=== PATIENT | female | born 1960 ===

== ENCOUNTER 2023-09-22 05:52 | Day surgery (SDC) | payer OTHER ==
[2023-09-14 15:16] LABS: PH,URINE 5.5 (5.0-8.0); URINE APPEARANCE Clear; URINE BILIRRUBIN Negative (NEGATIVE); URINE BLOOD Moderate; URINE COLOR Yellow; URINE GLUCOSE Negative (NEGATIVE); URINE LEUKOCYTE Negative; URINE NITRATE Negative; URINE UROBILINOGEN 0.2 E.U./dl
[2023-09-14 15:16] LABS: HEMATOCRIT 37.9 % (36.0-45.00); MEAN CELL VOLUME 85.5 fL (80.00-100.00); MEAN CORPUSCULAR HEMOGLOBIN 29.4 pg (27.00-32.0); MEAN CORPUSCULAR HGB CONC 34.3 g/dl (32.0-36.0); PLATELET COUNT 264 K/uL (150-450); RED BLOOD COUNT 4.43 M/uL (4.00-6.00); RED CELL DISTRIBUTION WIDTH 14.1 % (11.5-14.5)
[2023-09-14 15:20] LABS: URINE BACTERIA 147.3 uL (0.0-1933); URINE EPITHELIAL CELLS 11.5 uL (0.0-38.8); URINE RBC 23.7 uL (0.0-20.8); URINE WBC 9.7 uL (0.0-23.2)
[2023-09-14 15:29] LABS: URINE PROTEIN 100 (NEGATIVE)
[2023-09-14 15:35] LABS: INR 0.99; PARTIAL THROMBOPLASTIN TIME 31.2 SECONDS (22.0-34.0); PROTHROMBIN TIME 10.4 SECONDS (9.0-11.5)
[~2023-09-22 05:52] MED LIST: FOSAMAX70 MG PO; ZOCOR20 MG PO
[2023-09-22] MEDS ORDERED: CEFAZOLIN SODIUM 1,000 MG VIAL ONE (08:28)
[2023-09-22] MEDS ORDERED: CEFAZOLIN SODIUM 1,000 MG VIAL IV ONE (12:00)
== END 2023-09-22 15:05 | disposition home or self-care (01) ==
LOC: CIR.AMB 05:52
PROVIDERS: ATTEND Surgery Surgery of the Hand
DX: G56.01 Carpal tunnel syndrome, right upper limb (principal); M67.843 Other specified disorders of tendon, right hand